=== PATIENT | female | born 1980 | race American Indian/Alaskan Native ===

== ENCOUNTER 2019-02-18 11:06 | Emergency (ER) | payer MEDICAID ==
[2019-02-18 11:18] VITALS: BP 119/79
[2019-02-18] MEDS ORDERED: PERCOCET 5/325 PO STA (15:18)
--- NOTE | 2019-02-18 15:54 | XRay Report ---
XRAY LEFT SHOULDER THREE VIEWS: 02/18/19 11:06:00 CLINICAL: Work accident and pain. FINDINGS: No fracture or dislocation. Normal glenohumeral joint. Normal AC joint. The soft tissues are normal. IMPRESSION: Normal left shoulder.
--- NOTE | 2019-02-18 15:54 | XRay Report ---
XRAY RIGHT HIP TWO VIEWS: 02/18/19 15:40 CLINICAL: Right hip pain. FINDINGS: No fracture or dislocation.The joint space is normal. Normal soft tissues. The pelvic bones are intact. The left hip is normal. Pelvic phleboliths. IMPRESSION: Normal.
--- NOTE | 2019-02-18 16:02 | Emergency Department Report ---
ED General Adult HPI - General Chief complaint: Extremity Injury, Lower Stated complaint: INJURY RT HIP/LFT SIDE PAIN Time Seen by Provider: 02/18/19 15:17 Source: patient Mode of arrival: Ambulatory Limitations: No Limitations - History of Present Illness Initial comments: 38-year-old female presents to emergency department complaining o f pain to her right hip and left shoulder which started while she was at work. She works as a data processing systems consultant. She was pushing a cart and felt a crackling sensation to her right hip, which was followed by a sharp burning pain that didn't radiate down her leg and later across her back. The injury was occurred on 2 days ago and continued tach of a 60 onset. She reports no loss of bowel or bladder, no saddle paresthesia. No lotion to swelling. No fever, chills, sweats, no hematuria noted. No dysuria, no prior injury. Radiation: extremity Severity scale (0 -10): 7 Quality: burning, dull Consistency: constant Improves with: none Associated Symptoms: denies: diaphoresis, loss of appetite, malaise, rash, seizure - Related Data Previous Rx's Medication Instructions Recorded Last Taken Type HYDROcodone/APAP 5-325 [[place] 1 each PO Q6HR PRN #12 tablet 12/16/13 Unknown Rx 5-325 mg TAB] Ondansetron [Zofran Odt] 4 mg PO Q6H PRN #8 tab.rapdis 12/16/13 Unknown Rx Ketorolac [Toradol] 10 mg PO Q6H PRN #15 tablet 02/18/19 Unknown Rx Methocarbamol [Robaxin] 750 mg PO Q8H PRN #21 tablet 02/18/19 Unknown Rx Allergies Allergy/AdvReac Type Severity Reaction Status Date / Time No Known Allergies Allergy Unverified 12/16/13 07:28 ED Review of Systems ROS: Stated complaint: INJURY RT HIP/LFT SIDE PAIN Other details as noted in HPI Constitutional: denies: chills, fever Eyes: denies: eye pain, eye discharge, vision change ENT: denies: ear pain, throat pain Respiratory: denies: cough, shortness of breath, wheezing Cardiovascular: denies: chest pain, palpitations Endocrine: no symptoms reported Gastrointestinal: denies: abdominal pain, nausea, diarrhea Genitourinary: denies: urgency, dysuria, discharge Musculoskeletal: denies: back pain, joint swelling, arthralgia Skin: denies: rash, lesions Neurological: denies: headache, weakness, paresthesias Psychiatric: denies: anxiety, depression Hematological/Lymphatic: denies: easy bleeding, easy bruising ED Past Medical Hx - Past Medical History Previous Medical History?: No Additional medical history: Anemia - Surgical History Past Surgical History?: Yes Additional Surgical History: C section - Social History Smoking Status: Unknown if ever smoked Substance Use Type: None - Medications Home Medications: Home Medications Medication Instructions Recorded Confirmed Last Taken Type HYDROcodone/APAP 5-325 [[place] 1 each PO Q6HR PRN #12 tablet 12/16/13 Unknown Rx 5-325 mg TAB] Ondansetron [Zofran Odt] 4 mg PO Q6H PRN #8 tab.rapdis 12/16/13 Unknown Rx Ketorolac [Toradol] 10 mg PO Q6H PRN #15 tablet 02/18/19 Unknown Rx Methocarbamol [Robaxin] 750 mg PO Q8H PRN #21 tablet 02/18/19 Unknown Rx ED Physical Exam - General Limitations: No Limitations General appearance: alert, in no apparent distress - Head Head exam: Present: atraumatic, normocephalic - Eye Eye exam: Present: normal appearance, PERRL, EOMI Pupils: Present: normal accommodation - ENT ENT exam: Present: normal exam, normal orophraynx, mucous membranes moist - Neck Neck exam: Present: normal inspection, full ROM - Respiratory Respiratory exam: Present: normal lung sounds bilaterally. Absent: respiratory distress - Cardiovascular Cardiovascular Exam: Present: regular rate, normal rhythm. Absent: systolic murmur, diastolic murmur, rubs, gallop - GI/Abdominal GI/Abdominal exam: Present: soft, normal bowel sounds - Extremities Exam Extremities exam: Present: normal inspection, tenderness (there is tenderness of the right hip with palpation. Full range of motion. Normal internal/external rotation. Normal adduction and abduction. There is tenderness to the sacroiliac joint and the area of the greater trochanter. No swelling or edema. Nose no cellulitis is appreciated. Left shoulder has full range of motion pain. Pain with O'Michael's and Neer's test. And there is also pain with Morales test. No sulcus sign. No crepitus with range of motion. No deformities.) - Back Exam Back exam: Present: normal inspection, paraspinal tenderness. Absent: CVA tenderness (R), CVA tenderness (L) - Neurological Exam Neurological exam: Present: alert, oriented X3 - Psychiatric Psychiatric exam: Present: normal affect, normal mood - Skin Skin exam: Present: warm, dry, intact, normal color. Absent: rash ED Course Vital Signs 02/18/19 11:17 Temperature 98.5 F Pulse Rate 111 H Respiratory 16 Rate Blood Pressure 119/79 O2 Sat by Pulse 100 Oximetry ED Medical Decision Making - Radiology Data Radiology results: report reviewed (x-ray of the shoulder and hip were both normal) Critical care attestation.: If time is entered above; I have spent that time in minutes in the direct care of this critically ill patient, excluding procedure time. ED Disposition Clinical Impression: Shoulder pain, left, Hip pain, right Disposition: DC-01 TO HOME OR SELFCARE Is pt being admited?: No Does the pt Need Aspirin: No Condition: Stable Instructions: Lumbar Radiculopathy (ED), Arthralgia (ED), Shoulder Sprain (ED), Hip Bursitis (ED) Referrals: HOMER CONNELL MD [Primary Care Provider] - 3-5 Days
== END 2019-02-18 16:29 | disposition home or self-care (01) ==
LOC: ED 11:06
DX: M25.512 Pain in left shoulder (principal); M25.551 Pain in right hip; X50.9XXA Other and unspecified overexertion or strenuous movements or postures, initial encounter; Y93.89 Activity, other specified; Y92.89 Other specified places as the place of occurrence of the external cause; Y99.8 Other external cause status
CPT/HCPCS: 99283